=== PATIENT | male | born 1930 | race Caucasian/White ===

== ENCOUNTER 2017-02-18 14:07 | Emergency (ER) | payer MEDICARE, OTHER ==
[2017-02-18] MEDS ORDERED: Aspirin Low Dose CHEW TAB* 81 MG PO ONE (14:15)
[2017-02-18 14:59] LABS: Hematocrit 41 % (42-52); Hemoglobin 13.9 g/dl (14.0-18.0); Mean Corpuscular HGB Conc 34 g/dl (31-36); Mean Corpuscular Hemoglobin 35 pg (27-31); Mean Corpuscular Volume 103 fL (80-94); Mean Platelet Volume 8 um3 (7.4-10.4); Red Blood Count 4.01 10^6/ul (4.0-5.4); Red Cell Distribution Width 13 % (10.5-15); White Blood Count 6.7 10^3/ul (3.5-10.8)
[2017-02-18 15:19] LABS: Troponin I 0.01 ng/mL (<0.04)
[2017-02-18 15:27] LABS: Albumin 3.6 g/dL (3.2-5.2); BUN/Creatinine Ratio 17.2 (8-20); Calcium 9.1 mg/dL (8.6-10.3); EGFR African American 65.2 (>60); EGFR Non-African American 50.7 (>60); Potassium 3.9 mmol/L (3.5-5.0); Total Bilirubin 0.5 mg/dL (0.2-1.0); Total Protein 6.6 g/dL (6.4-8.9)
--- NOTE | 2017-02-18 15:34 | RAD ---
Indication: Chest pain. 2 views of the chest including dual energy PA views demonstrate no mediastinal shift. Heart is of normal size and configuration. Lung cox are clear. IMPRESSION: No active cardiopulmonary disease.
[2017-02-18 17:55] VITALS: BP 122/85
--- NOTE | 2017-02-21 14:45 | ED ---
Samia Hooks Thomas, scribed for Tavon Carey MD on 02/18/17 at 1659 . Palpitations / Dysrhythmia - HPI Summary HPI Summary: The pt is an 86 y/o M referred to the ED from his PMD Dr. Sears due to episodes of tachycardia. He was referred by his PMD due to possible bursts of A-Fib. The patient says that he felt weakness two days ago, prompting him to measured his BP and respiratory rate. Pt denies N/V/D, CP, SOB. Per the patients daughter, the patient may have been dehydrated. He has a Hx of A-Fib with an ablation done three years ago. He is on ASA 81. 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 His daughter Margo is present during examination. - History of Current Complaint Chief Complaint: EDDysrhythmPalp Time Seen by Provider: 02/18/17 16:45 Hx Obtained From: Patient, Family/Billing And Insurance Coordinator - daughter Margo is present Onset/Duration: Lasting Days - episodes of tachycardia in the last two days, Resolved Timing: Intermittent Episodes Lasting: Severity Currently: None Character: Fast Aggravating: Nothing Alleviating: Nothing Associated Signs & Symptoms: Negative - No symptoms except for weakness two days ago - Allergy/Home Medications Allergies/Adverse Reactions: Allergies Allergy/AdvReac Type Severity Reaction Status Date / Time Vardenafil [From Levitra] Allergy Unknown Unknown Unverified 12/06/14 12:36 Reaction Details MUSTARD Allergy EXCESSIVE Uncoded 09/28/14 07:40 SALIVATING Home Medications: Home Medications Calcium Carbonate [Calcium 600] 1,200 mg PO DAILY 02/18/17 [History Confirmed ] Levothyroxine TAB* [Synthroid TAB*] 25 mcg PO DAILY 02/18/17 [History Confirmed 02/18/17] PMH/Surg Hx/FS Hx/Imm Hx Previously Healthy: No Endocrine/Hematology History: Reports: Hx Thyroid Disease - HYPOTHYROID Cardiovascular History: Reports: Other Cardiovascular Problems/Disorders - HISTORY OF ATRIAL FIBRILLATION Sensory History: Denies: Hx Contacts or Glasses, Hx Hearing Aid Opthamlomology History: Denies: Hx Contacts or Glasses - Cancer History Cancer Type, Location and Year: skin ca - Surgical History Surgery Procedure, Year, and Place: COLONOSCOPY SEDATION Hx Anesthesia Reactions: No Infectious Disease History: No Infectious Disease History: Denies: Traveled Outside the [place] in Last 30 Days - Family History Known Family History: Positive: Diabetes, Other - Cancer - Social History Alcohol Use: None Substance Use Type: Reports: None Smoking Status (MU): Never Smoked Tobacco Review of Systems Negative: Fever, Chills Negative: Erythema - ees Negative: Sore Throat Positive: Other - Episodes of tachycardia prior to arrival. Negative: Chest Pain Negative: Shortness Of Breath, Cough Negative: Abdominal Pain, Vomiting, Diarrhea, Nausea Negative: dysuria, hematuria Negative: Myalgia, Edema - legs Negative: Rash Neurological: Other - Weakness; NEGATIVE: dizziness All Other Systems Reviewed And Are Negative: Yes Physical Exam - Summary Physical Exam Summary: Constitutional: Well-developed, Well-nourished, Alert. (-) Distressed Skin: Warm, Dry HENT: Normocephalic; Atraumatic Eyes: Conjunctiva normal Neck: Musculoskeletal ROM normal neck. (-) JVD, (-) Stridor, (-) Tracheal deviation Cardio: Rhythm regular, rate normal, Heart sounds normal; Intact distal pulses; The pedal pulses are 2+ and symmetric. Radial pulses are 2+ and symmetric. (-) Murmur Pulmonary/Chest wall: Effort normal. (-) Respiratory distress, (-) Wheezes, (-) Rales Abd: Soft, (-) Tenderness, (-) Distension, (-) Guarding, (-) Rebound Musculoskeletal: (-) Edema Lymph: (-) Cervical adenopathy Neuro: Alert, Oriented x3 Psych: Mood and affect Normal Triage Information Reviewed: Yes Vital Signs On Initial Exam: Initial Vitals Temp Pulse Resp BP Pulse Ox 98.8 F 74 17 127/85 96 02/18/17 14:08 02/18/17 14:08 02/18/17 14:08 02/18/17 14:08 02/18/17 14:08 Vital Signs Reviewed: Yes - Stefania Coma Scale Coma Scale Total: 15 Diagnostics - Vital Signs Vital Signs Temp Pulse Resp BP Pulse Ox 02/18/17 14:08 98.8 F 74 17 127/85 96 - Laboratory Lab Results: Lab Results 02/18/17 02/18/17 02/18/17 Range/Units 14:48 14:48 14:48 WBC 6.7 (3.5-10.8) 10^3/ul RBC 4.01 (4.0-5.4) 10^6/ul Hgb 13.9 L (14.0-18.0) g/dl Hct 41 L (42-52) % MCV 103 H (80-94) fL MCH 35 H (27-31) pg MCHC 34 (31-36) g/dl RDW 13 (10.5-15) % Plt Count 197 (150-450) 10^3/ul MPV 8 (7.4-10.4) um3 Neut % (Auto) 58.7 (38-83) % Lymph % (Auto) 27.0 (25-47) % [place] % (Auto) 9.8 H (1-9) % Eos % (Auto) 3.6 (0-6) % Baso % (Auto) 0.9 (0-2) % Absolute Neuts (auto) 3.9 (1.5-7.7) 10^3/ul Absolute Lymphs (auto) 1.8 (1.0-4.8) 10^3/ul Absolute Monos (auto) 0.7 (0-0.8) 10^3/ul Absolute Eos (auto) 0.2 (0-0.6) 10^3/ul Absolute Basos (auto) 0.1 (0-0.2) 10^3/ul Absolute Nucleated RBC 0 10^3/ul Nucleated RBC % 0 Sodium 134 (133-145) mmol/L Potassium 3.9 (3.5-5.0) mmol/L Chloride 104 (101-111) mmol/L Carbon Dioxide 23 (22-32) mmol/L Anion Gap 7 (2-11) mmol/L BUN 23 (6-24) mg/dL Creatinine 1.34 H (0.67-1.17) mg/dL Est GFR ( Amer) 65.2 (>60) Est GFR (Non-Af Amer) 50.7 (>60) BUN/Creatinine Ratio 17.2 (8-20) Glucose 114 H (70-100) mg/dL Lactic Acid 1.6 (0.5-2.0) mmol/L Calcium 9.1 (8.6-10.3) mg/dL Total Bilirubin 0.50 (0.2-1.0) mg/dL AST 22 (13-39) U/L ALT 14 (7-52) U/L Alkaline Phosphatase 64 (34-104) U/L Troponin I 0.01 (<0.04) ng/mL Total Protein 6.6 (6.4-8.9) g/dL Albumin 3.6 (3.2-5.2) g/dL Globulin 3.0 (2-4) g/dL Albumin/Globulin Ratio 1.2 (1-3) Result Diagrams: 02/18/17 14:48 02/18/17 14:48 Lab Statement: Any lab studies that have been ordered have been reviewed, and results considered in the medical decision making process. - EKG 16:02 Cardiac Rate: NL - 63 BPM EKG Interpretation: Sinus arrhythmia. RBBB. No STEMI. Course/Dx - Course Assessment/Plan: The pt is an 86 y/o M referred to the ED from his PMD Dr. Sears due to episodes of tachycardia. He was referred by his PMD due to possible bursts of A-Fib. The patient says that he felt weakness two days ago, prompting him to measured his BP and respiratory rate. Pt denies N/V/D, CP, SOB. Per the patients daughter, the patient may have been dehydrated. He has a Hx of A-Fib with an ablation done three years ago. He is on ASA 81. 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 His daughter Margo is present during examination. Normal physical exam. EKG shows sinus arrhythmia, RBBB, and no STEMI. The patient is diagnosed with sinus arrhythmia. He will follow up with Dr. Sears in 2-3 days. Pt is agreeable with this plan. - Diagnoses Provider Diagnoses: Sinus arrhythmia Discharge - Discharge Plan Condition: Stable Disposition: HOME Patient Education Materials: Weakness (ED) Referrals: Sivakumar Sears MD [Primary Care Provider] - 2 Days Additional Instructions: Follow up with Dr. Sears in 2-3 days. Return to the emergency department for any new or worsening symptoms. The documentation as recorded by the Samia peacock Thomas accurately reflects the service I personally performed and the decisions made by , Tavon Carey MD.
== END 2017-02-18 17:53 | disposition home or self-care (01) ==
LOC: ED 14:07
DX: I49.8 Other specified cardiac arrhythmias (principal); R00.0 Tachycardia, unspecified
CPT/HCPCS: 36415; 71020; 80053; 83605; 84484; 85025; 93005; 99282; A9270-GY

== ENCOUNTER 2017-08-14 15:44 | Emergency (ER) | payer MEDICARE, OTHER ==
--- NOTE | 2017-08-14 17:29 | RAD ---
HISTORY: Head injury COMPARISONS: September 14, 2014 TECHNIQUE: Multiple contiguous axial CT scans were obtained of the head without intravenous contrast. FINDINGS: HEMORRHAGE/INFARCT: There is no hemorrhage or acute infarct. MASSES/SHIFT: There is no mass or shift. EXTRA-AXIAL SPACES: There are no extra-axial fluid collections. SULCI AND VENTRICLES: The sulci and ventricles are normal in size and position for the patient's stated age. CEREBRUM: There are no focal parenchymal abnormalities. BRAINSTEM: There are no focal parenchymal abnormalities. CEREBELLUM: There are no focal parenchymal abnormalities. VESSELS: The vessels are grossly normal. PARANASAL SINUSES: The paranasal sinuses are clear. ORBITS: The orbits are unremarkable. BONES AND SOFT TISSUE: No bone or soft tissue abnormalities are noted. OTHER: None IMPRESSION: NO ACUTE INTRACRANIAL PATHOLOGY.
--- NOTE | 2017-08-14 17:48 | ED ---
Head Injury - HPI Summary HPI Summary: 86-year-old male presents with head injury today after a fall. He states he is playing squash and his left thigh gave out. He states he felt a pull in his back of his hamstring. He states the area immediately felt weak and he fell to his face. He denies any loss consciousness. He is on a baby aspirin. He denies any nausea or vomiting. He denies any neck pain. He denies any chest pain or shortness of breath. Fall was mechanical fall. He is able to ambulate. Denies any numbness or tingling in his leg. He has never had the pain in this leg before denies any previous trauma to the area. He hasn't taking anything for his pain. He is a small laceration to his forehead. He believes his tetanus up-to-date. He denies any headache. He denies any dizziness. He denies any change in vision. He denies any difficulties culturing. [place] sent him for imaging of his head. - History Of Current Complaint Chief Complaint: EDHeadInjury Stated Complaint: HEAD INJURY/LEG WEAKNESS Time Seen by Provider: 08/14/17 17:05 Pain Intensity: 3 - Allergies/Home Medications Allergies/Adverse Reactions: Allergies Allergy/AdvReac Type Severity Reaction Status Date / Time MS Vardenafil [From Levitra] Allergy Unknown Unknown Verified 08/14/17 17:19 Reaction Details MUSTARD Allergy EXCESSIVE Uncoded 09/28/14 07:40 SALIVATING PMH/Surg Hx/FS Hx/Imm Hx Endocrine/Hematology History: Reports: Hx Thyroid Disease - HYPOTHYROID Cardiovascular History: Reports: Other Cardiovascular Problems/Disorders - HISTORY OF ATRIAL FIBRILLATION Sensory History: Denies: Hx Contacts or Glasses, Hx Hearing Aid Opthamlomology History: Denies: Hx Contacts or Glasses - Cancer History Cancer Type, Location and Year: skin ca - Surgical History Surgery Procedure, Year, and Place: COLONOSCOPY SEDATION Hx Anesthesia Reactions: No Infectious Disease History: No Infectious Disease History: Denies: Traveled Outside the [place] in Last 30 Days - Family History Known Family History: Positive: Diabetes, Other - Cancer - Social History Alcohol Use: None Substance Use Type: Reports: None Smoking Status (MU): Never Smoked Tobacco Review of Systems Negative: Fever Negative: Chest Pain Negative: Shortness Of Breath Positive: Myalgia - left hamstring pain Neurological: Other - head injury All Other Systems Reviewed And Are Negative: Yes Physical Exam Triage Information Reviewed: Yes Vital Signs On Initial Exam: Initial Vitals Temp Pulse Resp BP Pulse Ox 97.7 F 58 18 114/76 97 08/14/17 16:29 08/14/17 16:29 08/14/17 16:29 08/14/17 16:29 08/14/17 16:29 Vital Signs Reviewed: Yes Appearance: Positive: Well-Appearing Skin: Positive: Warm, Dry, Other - 1 cm superficial laceration of forehead Head/Face: Positive: Normal Head/Face Inspection, Other - No step off, raccoon eyes, child sign Eyes: Positive: Normal, EOMI, JARED, Conjunctiva Clear ENT: Positive: Normal ENT inspection, Pharynx normal, TMs normal Neck: Positive: Other: - Nontender neck Respiratory/Lung Sounds: Positive: Clear to Auscultation, Breath Sounds Present Cardiovascular: Positive: Normal, RRR Abdomen Description: Positive: Nontender, Soft Bowel Sounds: Positive: Present Musculoskeletal: Positive: Other - Tenderness over hamstrings of left leg, good strength in left leg, sensation grossly intact, good pulses, nontender left knee and hip Neurological: Positive: Normal, Sensory/Motor Intact, Alert, Oriented to Person Place, Time, CN Intact II-III, Normal Gait Psychiatric: Positive: Normal - Stefania Coma Scale Best Eye Response: 4 - Spontaneous Best Motor Response: 6 - Obeys Commands Best Verbal Response: 5 - Oriented Coma Scale Total: 15 Procedures - Laceration/Wound Repair 1 Location: head Description: Linear Length, Depth and Shape: 1 cm superficial Irrigated w/ Saline (ccs): 50 Closure: Skin Adhesive Diagnostics - Vital Signs Vital Signs Temp Pulse Resp BP Pulse Ox 08/14/17 16:29 97.7 F 58 18 114/76 97 - Laboratory Lab Statement: Any lab studies that have been ordered have been reviewed, and results considered in the medical decision making process. - CT head CT Interpretation: No Acute Changes CT Interpretation Completed By: Radiologist Head Injury Course/Dx Course Of Treatment: 86-year-old male presents with head injury today after a fall. He states he is playing squash and his left thigh gave out. He states he felt a pull in his back of his hamstring. He states the area immediately felt weak and he fell to his face. He denies any loss consciousness. He is on a baby aspirin. He denies any nausea or vomiting. He denies any neck pain. He denies any chest pain or shortness of breath. Fall was mechanical fall. He is able to ambulate. Denies any numbness or tingling in his leg. He has never had the pain in this leg before denies any previous trauma to the area. He hasn 't taking anything for his pain. He is a small laceration to his forehead. He believes his tetanus up-to-date. On exam has evidence of erysipelas laceration to forehead. Clean area and Place: Area. Normal neuro exam. Got CT due to age. CT normal. Good strength in lower extremities. Able to ambulate with a steady gait. Tenderness over hamstrings of left leg. Neurovascularly intact. We'll have follow-up withortho if no improvement for possible tear of hamstrings. Told to follow-up with primary about head injury. Patient understands agrees plan. - Diagnoses Differential Diagnosis/HQI/PQRI: Concussion Without LOC, Contusion, Intracranial Bleed Provider Diagnoses: Head injury, Laceration of face, Left thigh pain Discharge - Sign-Out/Discharge Documenting (check all that apply): Discharge - Discharge Plan Condition: Good Disposition: HOME Patient Education Materials: Head Injury (ED), Leg Sprain (ED) Referrals: Sivakumar Sears MD [Primary Care Provider] - Scar Clements MD [Medical Doctor] - Additional Instructions: Place ice on area Take Tylenol for pain as needed every 6 hours Keep glue dry for 24 hours Glue will fall off on own Avoid scrubbing area Follow up with primary within 5 days Follow up with ortho if no improvement in 5 days with leg injury Return to ED if develop any signs of infection or any new or worsening symptoms - Billing Disposition and Condition Condition: GOOD Disposition: HOME
[2017-08-14 17:57] VITALS: BP 118/71
== END 2017-08-14 17:55 | disposition home or self-care (01) ==
LOC: ED 15:44
DX: S09.90XA Unspecified injury of head, initial encounter (principal); S01.91XA Laceration without foreign body of unspecified part of head, initial encounter; W19.XXXA Unspecified fall, initial encounter; M79.652 Pain in left thigh; Y92.9 Unspecified place or not applicable; M79.605 Pain in left leg
CPT/HCPCS: 70450; 99282